=== PATIENT | male | born 1990 | race African-American/Black ===

== ENCOUNTER 2017-09-30 23:19 | Emergency (ER) | payer MEDICAID ==
[~2017-09-30] VITALS: Ht 182.9 cm; Wt 113.4 kg
[~2017-09-30 23:19] MED LIST: LOP2C PO; PROM25TA5 PO; TRAM50TA2 PO
[2017-09-30 23:45] VITALS: BP 117/51
[2017-10-01 00:20] LABS: Basophils # (auto) 0 uL; Basophils % (auto) 0.5 % (0.0-2.0); Eosinophils # (auto) 0 uL; Eosinophils % (auto) 0.1 % (0.0-7.0); Hematocrit 45.6 % (41.0-53.0); Hemoglobin 15.3 g/dL (13.5-17.5); Lymphocytes # (auto) 0.7 uL; Lymphocytes % (auto) 13.4 % (10.0-50.0); Mean Corpuscular Hemoglobin 27.7 pg (28.0-32.0); Mean Corpuscular Hgb Conc. 33.7 g/dL (32.0-36.0); Mean Corpuscular Volume 82.2 fL (80.0-100.0); Monocytes # (auto) 0.4 uL; Monocytes % (auto) 6.6 % (0.0-12.0); Neutrophils # (auto) 4.4 uL; Neutrophils % (auto) 79.4 % (37.0-80.0); Nucleated Red Blood Cells % 0.1 %; Platelet Count (auto) 220 10^3/uL (140-450); Red Blood Cells 5.54 10^6/uL (4.5-5.90); Red Cell Distribution Width 13.7 % (11.8-14.3); White Blood Cell 5.5 10^3/uL (4.4-10.8)
[2017-10-01 00:38] LABS: Albumin 4.5 g/dL (3.4-5.0); BUN/Creatinine Ratio 7.5; Calcium 9.2 mg/dL (8.5-10.1)
[2017-10-01 00:41] LABS: Bilirubin, Total 1.1 mg/dL (0.2-1.0)
== END 2017-10-01 02:35 | disposition left against medical advice (07) ==
LOC: ER 23:19
DX: K92.0 Hematemesis (principal); Z53.21 Procedure and treatment not carried out due to patient leaving prior to being seen by health care provider
CPT/HCPCS: 36415; 80053; 85025